=== PATIENT | male | born 1975 | race Caucasian/White ===

== ENCOUNTER 2019-10-30 21:07 | Emergency (ER) | payer SELFPAY ==
--- NOTE | 2019-10-30 21:23 | ED.PDOC ---
History of Present Illness - General Chief Complaint: Chest Pain/IN Stated Complaint: chest pain, neck pain, shoulders Time Seen by Provider: 10/30/19 21:17 Source: patient, RN notes reviewed, Vital Signs reviewed Exam Limitations: no limitations - History of Present Illness Initial Comments: Patient is a 44-year-old male with no past medical history who presents the ED with 7-hour history of chest tightness and shoulder pain. States he was at rest today when he began feeling tightness or muscle cramps in the bilateral trapezius area and tightness in his chest. He denies any injury or trauma or increased activity in the past couple of days. Denies shortness of breath, cough, nausea or any recent sick exposures. States the pain is a 3 out of 10 in severity. Allergies/Adverse Reactions: Allergies NO KNOWN ALLERGY Allergy (Verified 10/30/19 21:57) Home Medications: Ambulatory Orders Cyclobenzaprine HCl [Flexeril] 10 mg PO Q8H PRN #15 tab 10/30/19 Review of Systems - Review of Systems Constitutional: Denies: chills, fever, weakness EENTM: Denies: blurred vision, nose congestion, throat pain Respiratory: Denies: cough, short of breath, wheezing Cardiology: States: chest pain. Denies: edema, palpitations, syncope Gastrointestinal/Abdominal: Denies: abdominal pain, diarrhea, nausea, vomiting Genitourinary: States: no symptoms reported Musculoskeletal: States: muscle pain, neck pain. Denies: back pain Skin: States: no symptoms reported Neurological: Denies: headache, paresthesia Hematologic/Lymphatic: States: no symptoms reported All other Systems: Reviewed and Negative Family Medical History - Family History Mother Family History: No Known Physical Exam - Physical Exam General Appearance: Alert, Comfortable, No apparent distress Eyes, Ears, Nose, Throat Exam: pharynx normal Neck: full range of motion, supple, other - No vertebral tenderness. Mild tenderness to bilateral cervical paraspinous muscles and bilateral trapezius muscles. Respiratory: chest non-tender, lungs clear, normal breath sounds, no respiratory distress, no accessory muscle use Cardiovascular/Chest: regular rate, rhythm, no edema, no murmur Gastrointestinal/Abdominal: non tender, soft, no pulsatile mass Extremity: normal range of motion, non-tender, normal inspection, no pedal edema Neurologic: no motor/sensory deficits, alert, normal mood/affect Skin Exam: normal color, warm/dry Progress - Progress Progress: 10/30/19 21:25 Differential diagnosis includes but is not limited to acute coronary syndrome, pneumonia, muscle strain, muscle spasm, pulmonary embolism, viral upper respiratory infection 10/30/19 22: Recheck patient. Patient denies any pain and requesting to go home. I have discussed with him chest x-ray findings and labs that are reassuring. I have recommended repeat troponin in ED at 2 hours, but patient refuses and wishes to go home. Vital signs have been stable. He denies any chest pain or difficulty breathing at this time. Shared decision making used and at patient request will discharge home and I have recommended he follow-up with a battery tester and repairer for further outpatient testing within 1 week and PCP in 1 to 2 days for recheck. If he has any chest pain, shortness of breath or other symptoms I have recommended he return to ED immediately for further evaluation. - Results/Orders Results/Orders: EKG-- NSR, rate 94, nml intervals, no ST abnormality CHEST XRAY No acute process 10/30/19 21:20 EKG Assessment ONCE Laboratory Results - last 24 hr 10/30/19 10/30/19 10/30/19 21:20 21:20 21:20 WBC 7.2 RBC 3.90 L Hgb 13.4 L Hct 38.6 L MCV 98.9 H MCH 34.4 H MCHC 34.8 RDW 13.7 Plt Count 188 MPV 8.0 Absolute Neuts (auto) 4.30 Absolute Lymphs (auto) 1.10 Absolute Monos (auto) 1.30 H Absolute Eos (auto) 0.40 Absolute Basos (auto) 0.00 Neutrophils % 60.5 Lymphocytes % 15.7 L Monocytes % 17.7 H Eosinophils % 5.4 H Basophils % 0.7 Sodium 136 Potassium 3.5 L Chloride 104 Carbon Dioxide 22 Anion Gap 13.5 BUN 9 Creatinine 0.88 BUN/Creatinine Ratio 10.2 Random Glucose 94 Serum Osmolality 270.4 L Calcium 8.9 Total Bilirubin 0.3 AST 21 ALT 15 Alkaline Phosphatase 55 Troponin I < 0.02 Serum Total Protein 6.9 Albumin 3.9 Globulin 3.0 Albumin/Globulin Ratio 1.3 Departure - Departure Clinical Impression: Muscle spasm Chest pain Qualifiers: Chest pain type: unspecified Qualified Code(s): R07.9 - Chest pain, unspecified Time of Disposition: 22:31 Disposition: Discharge to Home or Self Care Condition: Good Departure Forms: ED Discharge - Pt. Copy, Patient Portal Self Enrollment Instructions: DI for Chest Pain Diet: resume usual diet Activity: increase activity as tolerated Prescriptions: Cyclobenzaprine HCl [Flexeril] 10 mg PO Q8H PRN #15 tab PRN Reason: Mild To Moderate Pain Home Medications: Ambulatory Orders Cyclobenzaprine HCl [Flexeril] 10 mg PO Q8H PRN #15 tab 10/30/19 Additional Instructions: You will need to follow up with your PCP in 1-2 days for recheck and continued outpatient evaluation.
--- NOTE | 2019-10-30 22:19 | RAD ---
EXAM: XR Chest, 1 View CLINICAL HISTORY: The patient is 44 years old and is Male; chest pain TECHNIQUE: Frontal view of the chest. COMPARISON: No relevant prior studies available. FINDINGS: LUNGS: Unremarkable. No consolidation. PLEURAL SPACE: Unremarkable. No pneumothorax. HEART: Unremarkable. No cardiomegaly. MEDIASTINUM: Unremarkable. BONES/JOINTS: Unremarkable. IMPRESSION: No acute cardiopulmonary process. Electronically signed by: Jennifer Hanley MD 10/30/2019 10:17 PM CDT
[2019-10-30 22:37] VITALS: O2SAT 97
[2019-10-30 22:42] VITALS: TEMP 99.7
[2019-10-30 22:43] VITALS: BP 131/81
== END 2019-10-30 22:42 | disposition home or self-care (01) ==
LOC: ER 21:07
DX: M62.838 Other muscle spasm (principal); R07.9 Chest pain, unspecified